=== PATIENT | male | born 1970 | race Caucasian/White ===

== ENCOUNTER 2023-08-11 14:39 | Inpatient (IN) | payer MEDICARE, MEDICAID, SELFPAY ==
--- NOTE | ~2023-08-11 | XR_ITS ---
EXAMINATION: XR chest 1V portable DATE: 08/13/2023 11:28 INDICATION: Foreign body. TECHNIQUE: A single frontal view of the chest was obtained. COMPARISON: None. FINDINGS: There are interstitial opacities in the lower lung zones. No pleural effusion or pneumothor ax. The heart size is normal. There is no radiopaque foreign body. IMPRESSION: 1. Interstitial opacities in the lower lung zones, which may be mild atelectasis, scarring, or mild p ulmonary edema. 2. No radiopaque foreign body. Reviewed, dictated and finalized at location A. L WORKER IMPRESSION: 1. Interstitial opacities in the lower lung zones, which may be mild atelectasi s, scarring, or mild pulmonary edema. 2. No radiopaque foreign body.
--- NOTE | ~2023-08-11 | US_ITS ---
EXAMINATION: US venous doppler [facility] DATE: 08/13/2023 11:45 INDICATION: Lower limb swelling. TECHNIQUE: Grayscale ultrasound images without and with compression and Doppler ultrasound images of the bilateral lower extremity veins were obtained. COMPARISON: None. FINDINGS: The visualized portions of right common femoral vein, profunda (deep) femoral vein, femoral vein, pop liteal vein, peroneal veins, posterior tibial veins, and greater saphenous vein outflow are patent. The visualized portions of left common femoral vein, profunda femoral vein, femoral vein, popliteal v ein, peroneal veins, posterior tibial veins, and greater saphenous vein outflow are patent. IMPRESSION: 1. No deep venous thrombosis. Reviewed, dictated and finalized at location A. LLURGICAL SPECIALIST
--- NOTE | ~2023-08-11 | XR_ITS ---
EXAMINATION: XR orbit foreign body DATE: 08/13/2023 11:28 INDICATION: Foreign body. TECHNIQUE: 2 views of the orbits were obtained. COMPARISON: None. FINDINGS: There is rightward deviation of the nasal septum. No fracture. No radiopaque foreign body. IMPRESSION: 1. No radiopaque foreign body. Reviewed, dictated and finalized at location A. ON BREAKER
--- NOTE | ~2023-08-11 | XR_ITS ---
EXAM: XR foot RT min 3V DATE: 08/11/2023 14:59 HISTORY: foot wound, suspected osteo/BEST AVAILABLE . COMPARISON: None. FINDINGS: Decreased mineralization. No fracture or dislocation. No lytic or blastic lesion. Scattere d degenerative changes, moderate at the first MTP joint. No erosion or periosteal change. Soft tissue swelling and possible ulceration adjacent to the first MTP joint. IMPRESSION: No radiographic evidence of osteomyelitis. Reviewed, dictated and finalized at location K. ANICAL METER TESTER
--- NOTE | ~2023-08-11 | XR_ITS ---
EXAMINATION: XR abdomen/kub 1V DATE: 08/13/2023 11:28 INDICATION: Foreign body. TECHNIQUE: A supine view of the abdomen on 2 radiographs was obtained. COMPARISON: None. FINDINGS: There are no dilated loops of bowel. There is a small volume of stool in colon. No radiopaq ue foreign body. IMPRESSION: 1. No radiopaque foreign body. Reviewed, dictated and finalized at location A. CONDUCTOR LAB TECHNICIAN
[2023-08-11 14:42] VITALS: BP 160/94; PULSE 118; RESP 20; TEMP 36.7; O2SAT 98
--- NOTE | 2023-08-11 14:42 | ED.GENADULT ---
HPI - General Adult General Chief complaint: Extremity Injury, Lower Stated complaint: R foot infection Time Seen by Provider: 08/11/23 14:41 History of Present Illness HPI narrative: Matt (Goes by Elia) is a 52M with a history of severe autism brought into the ED by his cousins with a chronic right foot wound. He was cared for by his father, who did not believe in doctors, for many decades. However, he recently and other family has taken over and brought him in for evaluation. Further history is not possible as he only repeats what is said back to you. Related Data Home Medications Medication Instructions Recorded Confirmed No Home Medications 08/11/23 08/11/23 Allergies Allergy/AdvReac Type Severity Reaction Status Date / Time No Known Allergies Allergy Verified 08/11/23 15:05 Review of Systems Review of Systems: ROS unobtainable: Yes unobtainable due to medical condition Exam Const: General: cooperative, healthy appearing, comfortable, no acute distress, well developed, alert, awake and Physically active Orientation/consciousness: oriented to person HENMT: Head: normal to inspection, normocephalic and atraumatic Ears: hearing grossly normal bilaterally and external ears normal Face/Nose/Sinus: Normal external nose present Eyes: General: appearance normal, both eyes and all related structures Periorbital: periorbital findings normal Sclera: sclerae normal Pupils: Equal, round and reactive pupils present Neck: Neck: normal visual inspection Chest: Chest palpation & inspection: normal inspection of the chest Resp: Effort & Inspection: normal respiratory effort, able to speak in complete sentences and no respiratory distress Auscultation: clear to auscultation bilaterally Cardio: Jugular venous distension: no JVD Rate: regular rate Rhythm: regular rhythm GI: Inspection: normal to inspection GI Palp: Yes Soft to palpation Auscultation: normal bowel sounds Skin: General skin exam: normal color and no rashes or lesions noted Other: Jaundiced skin Neuro: General: oriented to person, oriented to place and oriented to time Cranial nerves: Yes Equal, round and reactive pupils present Extrem: General: normal to inspection Other: 5x5cm foot wound on the ball of the right foot with scale and some drainage Course Course Emergency Course: ordered radiographs and labs EXAM:? XR foot RT min 3V DATE: 08/11/2023 14:59 HISTORY: foot wound, suspected osteo/BEST AVAILABLE . COMPARISON:? None. FINDINGS:? Decreased mineralization. No fracture or dislocation. No lytic or blastic lesion. Scattered degenerative changes, moderate at the first MTP joint. No erosion or periosteal change. Soft tissue swelling and possible ulceration adjacent to the first MTP joint. IMPRESSION: No radiographic evidence of osteomyelitis. Labs showed mild microcytic anemia, mild hyponatremia, elevated glucose and A1c, as well as elevated bilirubin and LFTs. Attempted to transfer to [place], which was full at this time and recommended admission here, start antibiotics and transfer tomorrow. Admitted to observation at [facility]. Started Vancomycin and Zosyn. Given Insulin for elevated sugars. Lovenox for DVT prophylaxis. While admitted he will need a social work consult for his living situation and a liver US given his labs. Vital Signs Vital signs: Vital Signs Temperature 98.0 F 08/11/23 14:42 Pulse Rate 118 H 08/11/23 14:42 Respiratory Rate 20 08/11/23 14:42 Blood Pressure 160/94 H 08/11/23 14:42 Pulse Oximetry 98 08/11/23 14:42 Oxygen Delivery Room Air 08/11/23 14:42 Temperature 98.0 F 08/11/23 14:42 Pulse Rate 118 H 08/11/23 14:42 Respiratory Rate 20 08/11/23 14:42 Blood Pressure 160/94 H 08/11/23 14:42 Pulse Oximetry 98 08/11/23 14:42 Oxygen Delivery Room Air 08/11/23 14:42 Medical Decision Making Vital Signs Vital Signs: Vital Signs Temperature
[2023-08-11 15:11] LABS: Basophils Absolute Auto 0.02 K/mm3 (0.00-0.10); Basophils Percent Auto 0.3 % (0.0-1.0); Eosinophils Absolute Auto 0.03 K/mm3 (0.02-0.50); Eosinophils Percent Auto 0.5 % (1.0-6.0); Hematocrit 38.5 % (40.0-54.0); Hemoglobin 12.6 g/dL (14.0-18.0); Immature Granulocyte Absolute 0.02 K/mm3 (0.00-0.00); Immature Granulocyte Percent A 0.3 % (0.0-0.0); Immature Platelet Fraction Pct 1.4 % (1.0-7.0); Lymphocytes Absolute Auto 0.29 K/mm3 (1.10-4.50); Lymphocytes Percent Auto 4.5 % (18.0-42.0); Mean Corpuscular HGB Conc 32.7 g/dL (32.0-36.0); Mean Corpuscular Hemoglobin 28.2 pg (27.0-31.0); Mean Corpuscular Volume 86.1 fL (78.0-102.0); Mean Platelet Volume 9.7 fl (8.7-11.0); Monocytes Absolute Auto 0.02 K/mm3 (0.10-0.90); Monocytes Percent Auto 0.3 % (2.0-11.0); Neutrophils Absolute Auto 6.1 K/mm3 (1.7-7.2); Neutrophils Percent Auto 94.1 % (50.0-70.0); Platelet Count Result 71 K/mm3 (150-420); Red Blood Count 4.47 M/mm3 (4.70-6.10); Red Cell Distribution Width 13.3 % (11.6-14.4); White Blood Count 6.5 K/mm3 (4.8-10.8)
[2023-08-11 15:21] LABS: Alanine Aminotransferase 81 U/L (16-63); Albumin Level 2.5 g/dL (3.4-5.0); Alkaline Phosphatase 192 U/L (46-116); Anion Gap 8 mmol/L (8-16); Aspartate Amino Transferase 71 U/L (15-37); Bilirubin,Total 1.9 mg/dL (0.00-1.00); Blood Urea Nitrogen 4 mg/dL (7-18); CRP 0.7 mg/dL (0.0-0.9); Carbon Dioxide 28 mmol/L (21-32); Chloride 95 mmol/L (98-108); Estimated CRCL calculation 109 ml/min; Estimated Glomerular Filt Rate > 60; Glucose 252 mg/dL (70-99); Osmolality Calculated 277 mOsm/kg (285-295); Potassium 3.6 mmol/L (3.5-5.1); Sodium 131 mmol/L (136-145); Total Protein 6.9 g/dL (6.4-8.2)
[2023-08-11 15:23] LABS: Hemoglobin A1C 6.8 % (<5.7)
[2023-08-11 15:40] LABS: Thyroid Stimulating Hormone 2.83 uIU/mL (0.36-3.74)
[2023-08-11 17:05] VITALS: PULSE 104; RESP 22; O2SAT 94
[2023-08-11] MEDS: PIPERACILLN/TAZ 3.375GM/NS50ML 3.375 GM/50 ML BAG IVPB (17:23)
[2023-08-11 18:00] VITALS: BMI 32.7
--- NOTE | 2023-08-11 18:00 | ADMGEN ---
This patient, Matt Marcelino, was admitted to 2nd Floor Room 207-2. Patient/family oriented to hospital policies and general routines including ID bracelet, bed and alarms, visiting hours, pain management, procedures, bathroom and other care routines, personal items, smoking policy, room service/diet, and visiting hours. Information on how to activate the Rapid Response Team has been discussed. Patient/Family are encouraged to report perceived risks to care and to ask questions if they do not understand what they are told or what they should do.
[2023-08-11] MEDS: INSULIN GLARGINE (*BKC) 1,000 UNITS/10 ML VIAL 5 UNITS SUB-Q (18:24)
[2023-08-11] MEDS: VANCOMYCIN 1,750 MG/NS 500 ML 1,750 MG/500 ML BAG 250 MG IVPB (19:20)
[2023-08-11 19:30] VITALS: BMI 29.3
[2023-08-11 20:35] VITALS: TEMP 38.1
[2023-08-11] MEDS: IBUPROFEN 400 MG TABLET PO (20:35)
[2023-08-11 21:30] VITALS: TEMP 37.6
[2023-08-11] MEDS: LORazepam (*CRX) 1 MG TABLET PO (23:52)
[2023-08-12] VITALS: BP 125/57; PULSE 110; RESP 22; TEMP 37.2; O2SAT 92
[2023-08-12] MEDS: PIPERACILLN/TAZ 3.375GM/NS50ML 3.375 GM/50 ML BAG IVPB ×5 (00:49→23:14)
[2023-08-12 05:44] LABS: Estimated CRCL calculation 100 ml/min; Estimated Glomerular Filt Rate > 60
[2023-08-12] MEDS: VANCOMYCIN 1,750 MG/NS 500 ML 1,750 MG/500 ML BAG 250 MG IVPB ×2 (06:15→18:47)
[2023-08-12 08:00] VITALS: BP 131/77; PULSE 99; RESP 18; TEMP 37.1; O2SAT 98
[2023-08-12] MEDS: ENOXAPARIN 40 MG/0.4 ML SYRINGE SUB-Q (08:12)
--- NOTE | 2023-08-12 11:07 | PM.IMHP ---
H&P: HPI History of Present Illness Date/Time: 08/12/23 11:07 Chief Complaint: right foot infection Narrative: This is a 52 year old male with a significant past medical history of autism who presented to the hospital with right foot wound. Patient was cared for by his father for many years who did not believe in the healthcare system. He was found by other family in the home, father was in the house. Family brought him in for evaluation of his right foot wound and full work up. All of the history was obtained from the medical record as the patient is noncontributory and family is not present at the bedside. Work up in the hospital includes a right foot x-ray which did not show any evidence of osteomyelitis. Initial labs revealed Hgb 12.6, Hct 38.5, platelet count 71, Na+ 131, Chloride 95, BG ranging 187-252, Hgb A1C 6.8, serum osmolarity 277, Ca+ 8.0, Total bilirubin 1.9, AST 71, ALT 81, Alk phos 192, albumin 2.5, TSH 2.83, kidney function is normal. He was started on Vancomycin and Zosyn. Review of Systems Review of Systems: ROS unobtainable: Yes unobtainable due to medical condition [facility] Past Medical History Medical History (Updated 08/13/23 @ 01:27 by Janet Sellers APRN) Diabetes Social History Social History Smoking status: Never smoker Meds Home Medications and Allergies Home Medications Medication Instructions Recorded Confirmed Type No Home Medications 08/11/23 08/11/23 History Allergies Allergy/AdvReac Type Severity Reaction Status Date / Time No Known Allergies Allergy Verified 08/11/23 15:05 Vital Signs Vital Signs - 24 hr 08/11/23 14:42 08/11/23 17:05 08/11/23 20:35 Temperature 98.0 F 100.6 F H Pulse Rate 118 H 104 H Respiratory Rate 20 22 H Blood Pressure 160/94 H Pulse Oximetry 98 94 Oxygen Delivery Room Air Room Air 08/11/23 21:30 08/12/23 00:00 08/12/23 08:00 Temperature 99.7 F H 98.9 F 98.8 F Pulse Rate 110 H 99 Respiratory Rate 22 H 18 Blood Pressure 125/57 L 131/77 Pulse Oximetry 92 98 Oxygen Delivery Room Air Room Air Exam Const: General: comfortable and no acute distress HENMT: Face/Nose/Sinus: Normal nares present Mouth: Yes moist mucous membranes Eyes: General: appearance normal, both eyes and all related structures Sclera: sclerae normal Pupils: Equal, round and reactive pupils present Neck: Neck: supple and no JVD Thyroid: thyroid normal Lymphatic: lymphadenopathy not noted Chest: Other: symmetrical Resp: Effort & Inspection: normal respiratory effort Auscultation: clear to auscultation bilaterally Cardio: Rate: regular rate Rhythm: regular rhythm Heart sounds: no gallops, no murmurs and no rubs GI: Inspection: non-distended GI Palp: Yes Soft to palpation Auscultation: normal bowel sounds Skin: General skin exam: normal color Wounds: wounds noted Other: right ball of foot, likely popped blister which has been debrided some. Small open area, wound bed pink with bleeding margins. Neuro: Speech: normal speech Other: Autism, only repeats everything you say. Extrem: General: normal to inspection, no edema and pedal edema (mild) bilaterally Psych: Other: unable to assess fully due to autism H&P: Results Labs Labs: Short CBC 08/11/23 Range/Units 15:01 WBC 6.5 (4.8-10.8) K/mm3 Hgb 12.6 L (14.0-18.0) g/dL Hct 38.5 L (40.0-54.0) % Plt Count 71 L (150-420) K/mm3 BMP 08/11/23 08/12/23 15:01 05:25 Sodium 131 L Potassium 3.6 Chloride 95 L Carbon Dioxide 28 BUN 4 L Creatinine 0.88 0.95 Glucose 252 H Calcium 8.0 L Liver Function 08/11/23 Range/Units 15:01 Total Bilirubin 1.9 H (0.00-1.00) mg/dL AST 71 H (15-37) U/L ALT 81 H (16-63) U/L Alkaline Phosphatase 192 H (46-116) U/L Albumin 2.5 L (3.4-5.0) g/dL Imaging right foot: Radiologist's impr
--- NOTE | 2023-08-12 11:08 | PC.NURSE ---
Patient changed from observation status to inpatient status.
--- NOTE | 2023-08-12 12:05 | PC.NURSE ---
Patient unable to answer most yes or no questions due to autism spectrum disorder. Patient is cooperative with care at this time.
[2023-08-12 12:18] LABS: Glucose Point of Care 187 mg/dl (65-105)
--- NOTE | 2023-08-12 14:11 | PC.NURSE ---
Dressing changed to patient's R foot. Cleansed with wound cleanser, MAULIK applied and covered with telfa and gauze. Patient tolerated well.
[2023-08-12 16:00] VITALS: BP 101/63; PULSE 91; RESP 18; TEMP 37.8; O2SAT 92
[2023-08-12 16:40] LABS: Glucose Point of Care 223 mg/dl (65-105)
[2023-08-12] MEDS: INSULIN HUMAN LISPRO (*BKC) 1,000 UNITS/10 ML VIAL SUB-Q (17:23)
[2023-08-12 20:00] VITALS: PULSE 91; RESP 18; O2SAT 92
[2023-08-12 20:37] VITALS: TEMP 37.2
[2023-08-12] MEDS: IBUPROFEN 400 MG TABLET PO (20:37)
[2023-08-12] MEDS: QUEtiapine FUMARATE 25 MG TABLET 50 MG PO (20:37)
[2023-08-12 20:41] LABS: Glucose Point of Care 255 mg/dl (65-105)
[2023-08-12 21:33] VITALS: TEMP 37.2
[2023-08-13] VITALS: BP 100/60; PULSE 73; RESP 17; TEMP 37.2; O2SAT 98
[2023-08-13] MEDS: PIPERACILLN/TAZ 3.375GM/NS50ML 3.375 GM/50 ML BAG IVPB (04:56)
[2023-08-13] MEDS: OLANZapine DISPERTAB 5 MG PO (04:56)
[2023-08-13 05:26] LABS: Hemoglobin 11.3 g/dL (14.0-18.0); Immature Platelet Fraction Pct 3.7 % (1.0-7.0); Mean Corpuscular HGB Conc 34.2 g/dL (32.0-36.0); Mean Corpuscular Hemoglobin 29.1 pg (27.0-31.0); Mean Corpuscular Volume 85.1 fL (78.0-102.0); Mean Platelet Volume 9.8 fl (8.7-11.0); Platelet Count Result 36 K/mm3 (150-420); Red Blood Count 3.88 M/mm3 (4.70-6.10); Red Cell Distribution Width 13.7 % (11.6-14.4); White Blood Count 3.9 K/mm3 (4.8-10.8)
[2023-08-13] MEDS: VANCOMYCIN 1,750 MG/NS 500 ML 1,750 MG/500 ML BAG 250 MG IVPB (05:35)
[2023-08-13 05:46] LABS: Anion Gap 7 mmol/L (8-16); Blood Urea Nitrogen 12 mg/dL (7-18); Calcium 7.6 mg/dL (8.5-10.1); Carbon Dioxide 27 mmol/L (21-32); Chloride 96 mmol/L (98-108); Estimated CRCL calculation 105 ml/min; Estimated Glomerular Filt Rate > 60; Glucose 152 mg/dL (70-99); Osmolality Calculated 272 mOsm/kg (285-295); Potassium 3.4 mmol/L (3.5-5.1); Sodium 130 mmol/L (136-145); Total Cells Counted 100
[2023-08-13 05:47] LABS: Band Neutrophils Percent 7 % (0-6); Basophils Absolute Manual 0.03 K/mm3 (0-0.1); Basophils Percent Manual 1 % (0-1); Eosinophils Percent Manual 0 % (1-6); Lymphocytes Absolute Manual 0.58 K/mm3 (1.1-4.5); Lymphocytes Percent Manual 15 % (18-44); Monocytes Absolute Manual 0.31 K/mm3 (0.1-0.90); Monocytes Percent Manual 8 % (3-9); Neutrophils Absolute Manual 2.96 K/mm3 (1.3-6.7); Neutrophils Percent Manual 69 % (46-73); Platelet Estimate Decreased (Adequate)
[2023-08-13 06:09] LABS: Cholesterol 67 mg/dL (0-200); HDL Direct 20 mg/dL (40-60); LDL Cholesterol Calculated 28 mg/dL (<130); Magnesium 1.7 mg/dL (1.8-2.4); Triglycerides 95 mg/dL (0-150)
[2023-08-13 06:10] LABS: Vancomycin Trough 11.2 ug/mL (10.0-15.0)
[2023-08-13 06:22] LABS: Appearance Urine Clear (Clear); Bilirubin Urine Negative (Negative); Blood Urine Negative (Negative); Color Urine Light Yellow (Yellow); Glucose Urine UA 1+ (Negative); Ketones Urine Negative (Negative); Leukocyte Esterase Ur Negative LEU/UL (Negative); Nitrate Urine Negative (Negative); Protein Urine Negative (Negative); Specific Grav Ur <= 1.005 (1.010-1.020)
[2023-08-13 06:29] LABS: Add Urine Microscopic? YES; Bacteria Urine None seen /hpf; RBC Urine None seen /hpf (0-2); WBC Urine None seen /hpf (0-3)
[2023-08-13 08:00] VITALS: BP 136/74; PULSE 92; RESP 16; TEMP 36.6; O2SAT 98
[2023-08-13 08:01] LABS: Glucose Point of Care 229 mg/dl (65-105)
[2023-08-13] MEDS: INSULIN HUMAN LISPRO (*BKC) 1,000 UNITS/10 ML VIAL SUB-Q (08:17)
--- NOTE | 2023-08-13 11:14 | PC.NURSE ---
Patient off floor per wheelchair to radiology for CT and ultrasound
[2023-08-13 12:22] LABS: Glucose Point of Care 189 mg/dl (65-105)
--- NOTE | 2023-08-13 12:50 | PC.NURSE ---
Notified provider of sepsis aida
[2023-08-13] MEDS: CEFEPIME 2 GM/NS 50 ML 2 GM/50 ML BAG IVPB (13:53)
--- NOTE | 2023-08-13 14:05 | PM.IMPN ---
Subjective Date/time seen: 08/13/23 12:05 Objective Data Vital Signs Vital Signs: Vital Signs - 24 hr 08/12/23 16:00 08/12/23 20:37 08/12/23 20:00 Temperature 37.8 C H 37.2 C Pulse Rate 91 91 Respiratory Rate 18 18 Blood Pressure 101/63 Pulse Oximetry 92 92 Oxygen Delivery Room Air Room Air 08/12/23 21:33 08/13/23 00:00 08/13/23 08:00 Temperature 37.2 C 37.2 C 36.6 C Pulse Rate 73 92 Respiratory Rate 17 16 Blood Pressure 100/60 136/74 Pulse Oximetry 98 98 Oxygen Delivery Room Air Room Air Intake/Output Intake/Output: Intake & Output 08/10/23 08/11/23 08/12/23 08/13/23 23:59 23:59 23:59 23:59 Intake Total 910 5200 3640 Output Total 200 2250 3050 Balance 710 2950 590 Meds/Results Medications: Active Medications Generic Name Dose Route Start Last Admin Trade Name Freq PRN Reason Stop Dose Admin Hydrocodone Bitart/Acetaminophen 1 tab 08/11/23 17:03 Hydrocodone/Acetaminophen (*Crx) 5-325 Mg Tablet PO Q4H PRN Moderate Pain (4-6) Dextrose 12.5 gm 08/12/23 11:37 Dextrose 50% 25 Gm/50 Ml Syringe IV PUSH PRN PRN Hypoglycemia Protocol Glucagon 1 mg 08/12/23 11:37 Glucagon For Inj 1 Mg Vial IM PRN PRN Hypoglycemia Protocol Glucose 15 gm 08/12/23 11:37 Glucose Oral Gel 15 Gm Of Glucse In 37.5 Gm Tube PO PRN PRN Hypoglycemia Protocol Dextrose 1,000 mls @ 100 mls/hr 08/12/23 11:37 Dextrose 5% 1,000 Ml IVPB PRN PRN Hypoglycemia Protocol Cefepime HCl 2 gm in 50 mls @ 100 mls/hr 08/13/23 11:00 08/13/23 13:53 Maxipime 2 Gm/Ns 50 Ml IVPB 100 mls/hr Q12H [facility]OTT Administration Metronidazole 500 mg in 100 mls @ 100 mls/hr 08/13/23 11:00 Flagyl 500 Mg/Iso Soln 100 Ml IVPB Q8H [facility] Vancomycin HCl 2,000 mg in 500 mls @ 250 mls/hr 08/13/23 16:00 Vancomycin 2,000 Mg/Ns 500 Ml IVPB Q12H SCOTT Sodium Chloride 250 mls @ 30 mls/hr 08/13/23 10:54 Normal Saline Iv IV CONT 08/13/23 19:13 .Q8H20M STA Ibuprofen 400 mg 08/11/23 17:03 08/12/23 20:37 Ibuprofen 400 Mg Tablet PO 400 mg Q6H PRN Administration Mild Pain (1-3) or Fever Insulin Human Lispro 3 - 6 units 08/12/23 12:00 08/13/23 12:00 Insulin Human Lispro (*Bkc) 1,000 Units/10 Ml Vial SUB-Q Not Given TIDWM [facility] Protocol Morphine Sulfate 2 mg 08/11/23 17:03 Morphine Sulfate (*Crx) 2 Mg/Ml Inj IV PUSH Q4H PRN Pain Rated 7-10 Naloxone HCl 0.1 mg 08/11/23 17:03 Naloxone Hcl 0.4 Mg/Ml Vial IV PUSH Q2M PRN Opiate Reversal Olanzapine 5 mg 08/11/23 23:48 08/13/23 04:56 Olanzapine Dispertab 5 Mg PO 5 mg Q6HR PRN Administration Agitation Ondansetron HCl 4 mg 08/11/23 17:03 Ondansetron Inj 4 Mg/2 Ml Vial IV PUSH Q6H PRN Nausea And Vomiting Quetiapine Fumarate 50 mg 08/12/23 21:00 08/12/23 20:37 Quetiapine Fumarate 25 Mg Tablet PO 50 mg HS SCOTT Administration Radiology Results: ITS Impressions Foot X-Ray 08/11/23 15:03 IMPRESSION: No radiographic evidence of osteomyelitis. Eye X-Ray 08/13/23 11:51 IMPRESSION: 1. No radiopaque foreign body. Chest X-Ray 08/13/23 12:08 IMPRESSION: 1. Interstitial opacities in the lower lung zones, which may be mild atelectasis, scarring, or mild pulmonary edema. 2. No radiopaque foreign body. Abdomen X-Ray 08/13/23 12:09 IMPRESSION: 1. No radiopaque foreign body. Venous Doppler Study 08/13/23 12:10 IMPRESSION: 1. No deep venous thrombosis. Labs Labs: Laboratory Results - last 24 hr 08/12/23 08/12/23 08/13/23 16:35 20:36 05:01 WBC 3.9 L RBC 3.88 L Hgb 11.3 L Hct 33.0 L MCV 85.1 MCH 29.1 MCHC 34.2 RDW 13.7 Plt Count 36 L MPV 9.8 Immature Gran % (Auto) Not Reportable Neut % (Auto) Not Reportable Lymph % (Auto) Not Reportable [place] % (Auto) Not Reportable Eos % (Auto) No
[2023-08-13] MEDS: metroNIDAZOLE 500 MG/ISO 100ML 500 MG/100 ML BAG 100 MG IVPB (14:27)
--- NOTE | 2023-08-13 15:36 | PM.TDS ---
Transfer Discharge Sum: Prov Provider Date of admission: 08/12/23 11:08 Primary care physician: UNKNOWN,DOCTOR Admitting clinician: Carlitos Costa MD Attending physician on admission: Hal Costa Consults: 08/11/23 Care Coordination Consult Routine Comment: family assist with setting up care Reason for Consult:: Other Attending physician on discharge: Hal Costa Discharging clinician: Min Purcell Anticipated date of transfer: 08/13/23 Receiving physician/facility: Dr. Fam Liu at [facility] DS: Admitting Diagnosis Discharge Date 08/13/2023 Admitting Diagnosis diabetic foot ulcer, diabetes, thrombocytopenia, autism, transaminitis DS: Discharge Diagnosis Discharge Diagnosis (1) Diabetic foot ulcer: Code(s): E11.621 - Type 2 diabetes mellitus with foot ulcer; L97.509 - Non-pressure chronic ulcer of other part of unspecified foot with unspecified severity Status: Acute (2) Diabetes: Code(s): E11.9 - Type 2 diabetes mellitus without complications Status: Acute (3) Thrombocytopenia: Code(s): D69.6 - Thrombocytopenia, unspecified Status: Acute (4) Transaminitis: Code(s): R74.01 - Elevation of levels of liver transaminase levels Status: Acute (5) Pancytopenia: Code(s): D61.818 - Other pancytopenia Status: Acute (6) Right foot infection: Code(s): L08.9 - Local infection of the skin and subcutaneous tissue, unspecified Status: Acute (7) Cognitive developmental delay: Code(s): F81.9 - Developmental disorder of scholastic skills, unspecified Status: Acute Plan Transfer to Hospitalist at [facility] with anticipated referral to surgery/ortho and hematology Transfer Discharge Sum: Med Medications Active and Home Medications: Home Medications No Home Medications 08/11/23 [History Confirmed 08/11/23] Active Medications Hydrocodone Bitart/Acetaminophen (Hydrocodone/Acetaminophen (*Crx) 5-325 Mg Tablet) 1 tab PO Q4H PRN PRN Reason: Moderate Pain (4-6) Dextrose (Dextrose 50% 25 Gm/50 Ml Syringe) 12.5 gm IV PUSH PRN PRN; Protocol PRN Reason: Hypoglycemia Glucagon (Glucagon For Inj 1 Mg Vial) 1 mg IM PRN PRN; Protocol PRN Reason: Hypoglycemia Glucose (Glucose Oral Gel 15 Gm Of Glucse In 37.5 Gm Tube) 15 gm PO PRN PRN; Protocol PRN Reason: Hypoglycemia Dextrose (Dextrose 5% 1,000 Ml) 1,000 mls @ 100 mls/hr IVPB PRN PRN; Protocol PRN Reason: Hypoglycemia Cefepime HCl (Maxipime 2 Gm/Ns 50 Ml) 2 gm in 50 mls @ 100 mls/hr IVPB Q12H [facility] Last Admin: 08/13/23 13:53 Dose: 100 mls/hr Metronidazole (Flagyl 500 Mg/Iso Soln 100 Ml) 500 mg in 100 mls @ 100 mls/hr IVPB Q8H [facility] Last Admin: 08/13/23 14:27 Dose: 100 mls/hr Vancomycin HCl (Vancomycin 2,000 Mg/Ns 500 Ml) 2,000 mg in 500 mls @ 250 mls/hr IVPB Q12H [facility] Sodium Chloride (Normal Saline Iv) 250 mls @ 30 mls/hr IV CONT .Q8H20M STA Stop: 08/13/23 19:13 Ibuprofen (Ibuprofen 400 Mg Tablet) 400 mg PO Q6H PRN PRN Reason: Mild Pain (1-3) or Fever Last Admin: 08/12/23 20:37 Dose: 400 mg Insulin Human Lispro (Insulin Human Lispro (*Bkc) 1,000 Units/10 Ml Vial) 3 - 6 units SUB-Q TIDWM [facility]; Protocol Last Admin: 08/13/23 12:00 Dose: Not Given Morphine Sulfate (Morphine Sulfate (*Crx) 2 Mg/Ml Inj) 2 mg IV PUSH Q4H PRN PRN Reason: Pain Rated 7-10 Naloxone HCl (Naloxone Hcl 0.4 Mg/Ml Vial) 0.1 mg IV PUSH Q2M PRN PRN Reason: Opiate Reversal Olanzapine (Olanzapine Dispertab 5 Mg) 5 mg PO Q6HR PRN PRN Reason: Agitation Last Admin: 08/13/23 04:56 Dose: 5 mg Ondansetron HCl (Ondansetron Inj 4 Mg/2 Ml Vial) 4 mg IV PUSH Q6H PRN PRN Reason: Nausea And Vomiting Quetiapine Fumarate (Quetiapine Fumarate 25 Mg Tablet) 50 mg PO HS [facility] Last Admin: 08/12/23 20:37 Dose: 50 mg Transfer Discharge Sum: Hosp Hospital Course Hospital course: Matt Marcelino is a 52 year old male with a histo
[2023-08-13 16:00] VITALS: BP 128/74; PULSE 76; RESP 20; TEMP 36.8; O2SAT 98
[2023-08-13] MEDS: VANCOMYCIN 2,000 MG/NS 500 ML 2,000 MG/500 ML BAG 250 MG IVPB (16:16)
--- NOTE | 2023-08-13 16:50 | PC.NURSE ---
Patient transferred to [facility] per [facility]. Family notified of patient transfer
--- NOTE | 2023-08-13 17:09 | PC.NURSE ---
Correction Patient transferred by [facility] service not [facility].
[2023-08-15 23:38] LABS: Heparin Induced Platelet Antib Negative (Negative)
[2023-08-17 03:41] LABS: Hepatitis A Antibody IgM Nonreactive; Hepatitis B Core Antibody Nonreactive (Nonreactive); Hepatitis B Surface Antigen Nonreactive (Nonreactive); Hepatitis C Virus Antibody Nonreactive
== END 2023-08-13 16:54 | disposition short-term general hospital (02) | DRG 638 ==
LOC: CHSED 16:14 → CHS2ND 17:12
PROVIDERS: Nurse Practitioner; Nurse Practitioner Acute Care; Admitting Provider Internal Medicine; Emergency Provider Family Medicine; Visit Provider Internal Medicine
DX: E11.621 Type 2 diabetes mellitus with foot ulcer (principal); D61.818 Other pancytopenia; F84.0 Autistic disorder; L97.419 Non-pressure chronic ulcer of right heel and midfoot with unspecified severity; Z59.00 Homelessness unspecified; E87.1 Hypo-osmolality and hyponatremia; D69.6 Thrombocytopenia, unspecified; L08.9 Local infection of the skin and subcutaneous tissue, unspecified; R74.01 Elevation of levels of liver transaminase levels
CPT/HCPCS: 36415; 73630; 80048; 80053; 80061; 80074; 80202; 81001; 82565; 82948; 83036; 83735; 84443; 85025; 85055; 86022; 86140; 86900; 86901; 93970; 96365; 96366; 96367; 96372; 97161; 97165; 99285; A9270; G0378; J0692; J1650; J1815; J1836; J2543; J3370